=== PATIENT | male | born 1945 | race Caucasian/White ===

== ENCOUNTER → 2018-01-10 | Outpatient (CLI) | payer MEDICARE | END | disposition home or self-care (01) | LOC: RAD 11:03 | PROVIDERS: ATTEND Neurological Surgery | DX: M47.896 Other spondylosis, lumbar region (principal); M47.897 Other spondylosis, lumbosacral region; M41.85 Other forms of scoliosis, thoracolumbar region | CPT/HCPCS: 72082 ==